=== PATIENT | female | born 1985 | race Caucasian/White ===

== ENCOUNTER 2021-12-04 16:30 | Inpatient (IN) | payer OTHER ==
[2021-12-04 16:58] VITALS: BMI 23.8
[2021-12-04] MEDS ORDERED: BENZOCAINE/MENTHOL (CHLORASEPTIC ) LOZENGE MM PRN (18:32)
[2021-12-04] MEDS ORDERED: LOPERAMIDE HCL 2 MG CAPSULE PO PRN (18:32)
[2021-12-04] MEDS ORDERED: BISMUTH SUBSALICYLATE 524 MG/30 ML PO PRN (18:32)
[2021-12-04] MEDS ORDERED: MAG HYDROX/AL HYDROX/SIMETH 30 ML UNIT-DOSE CUP PO PRN (18:32)
[2021-12-04] MEDS ORDERED: MAGNESIUM HYDROX 2400MG/30ML ORAL SUSPENSION 30 ML CUP PO PRN (18:32)
[2021-12-04] MEDS ORDERED: DICYCLOMINE HCL 10 MG CAPSULE PO PRN (18:32)
[2021-12-04] MEDS ORDERED: ACETAMINOPHEN 325 MG TABLET (FP) PO PRN (18:32)
[2021-12-04] MEDS ORDERED: MAGNESIUM CITRATE 300 ML BOTTLE PO PRN (18:32)
[2021-12-04] MEDS ORDERED: ALBUTEROL SO4 HFA INHALER IH PRN (18:39)
[2021-12-04] MEDS ORDERED: chlordiazePOXIDE HCL 25 MG CAPSULE PO PRN (21:06)
[2021-12-04] MEDS: ONDANSETRON *ODT* 4 MG TABLET SL PRN (21:49)
[2021-12-04] MEDS: MELATONIN 5 MG TABLETS PO SCH (21:51)
[2021-12-04] MEDS: THIAMINE HCL 100 MG TABLET (FP) PO SCH (21:56)
[2021-12-04] MEDS: chlordiazePOXIDE HCL 25 MG CAPSULE PO SCH (22:00)
[2021-12-04] MEDS: NICOTINE POLACRILEX 2 MG GUM BUC PRN (23:04)
[2021-12-05] MEDS: METHOCARBAMOL 500 MG TABLET PO PRN ×3 (01:12→22:24)
[2021-12-05] MEDS: chlordiazePOXIDE HCL 25 MG CAPSULE PO SCH ×4 (06:29→22:22)
[2021-12-05] MEDS: ACETAMINOPHEN 325 MG TABLET (FP) PO PRN (06:31)
[2021-12-05] MEDS: NICOTINE POLACRILEX 2 MG GUM BUC PRN ×3 (06:34→18:04)
[2021-12-05] MEDS: PRENATAL VITAMINS W/ FOLIC ACID TABLET (FP) PO SCH (10:10)
[2021-12-05] MEDS: ONDANSETRON *ODT* 4 MG TABLET SL PRN (10:13)
[2021-12-05] MEDS: NICOTINE 21 MG/24 HOURS TOPICAL PATCH TD SCH (10:52)
[2021-12-05 12:08] LABS: HEMATOCRIT 37.7 % (32.4-45.2); HEMOGLOBIN 12.6 GM/dL (10.7-15.3); MCH 31.1 pg (25.7-33.7); MCHC 33.4 g/dl (32.0-36.0); MEAN CELL VOLUME 93.1 fl (80-96); MEAN PLT VOLUME 7.2 fl (7.5-11.1); PLATELET COUNT 455 10^3/uL (134-434); RBC 4.06 M/mm3 (3.60-5.2); RDW 14.3 % (11.6-15.6); WHITE BLOOD COUNT 9.6 K/mm3 (4.0-10.0)
[2021-12-05 12:15] LABS: ALBUMIN 3.4 g/dl (3.4-5.0); BLOOD UREA NITROGEN 12.1 mg/dL (7-18); CALCIUM 8.9 mg/dL (8.5-10.1)
[2021-12-05 12:18] LABS: CREATININE 0.8 mg/dL (0.55-1.3)
[2021-12-05 12:20] LABS: BILIRUBIN,TOTAL 0.6 mg/dL (0.2-1); TOT PROT 6.7 g/dl (6.4-8.2)
[2021-12-05] MEDS: lamoTRIgine 100 MG TABLET PO SCH (12:47)
[2021-12-05] MEDS: VENLAFAXINE HCL 150 MG E.R. CAPSULE PO SCH (13:06)
[2021-12-05] MEDS: IBUPROFEN 400 MG TABLET (FP) PO PRN ×2 (14:39→22:24)
[2021-12-05] MEDS: hydrOXYzine PAMOATE 25 MG CAPSULE (FP) PO PRN ×2 (18:01→22:22)
[2021-12-05] MEDS: MELATONIN 5 MG TABLETS PO SCH (22:22)
[2021-12-05] MEDS: THIAMINE HCL 100 MG TABLET (FP) PO SCH (22:22)
[2021-12-06] MEDS: ALBUTEROL SO4 HFA INHALER IH PRN (05:48)
[2021-12-06] MEDS ORDERED: ALBUTEROL SO4 HFA INHALER IH ONE (05:48)
[2021-12-06] MEDS: chlordiazePOXIDE HCL 25 MG CAPSULE PO SCH ×4 (05:48→22:14)
[2021-12-06 08:06] LABS: SARS-CoV-2 NAA Not Detected (Not Detected)
[2021-12-06] MEDS: hydrOXYzine PAMOATE 25 MG CAPSULE (FP) PO PRN ×3 (10:31→22:14)
[2021-12-06] MEDS: PRENATAL VITAMINS W/ FOLIC ACID TABLET (FP) PO SCH (10:31)
[2021-12-06] MEDS: lamoTRIgine 100 MG TABLET PO SCH (10:32)
[2021-12-06] MEDS: METHOCARBAMOL 500 MG TABLET PO PRN ×2 (10:32→17:50)
[2021-12-06] MEDS: NICOTINE 21 MG/24 HOURS TOPICAL PATCH TD SCH (10:33)
[2021-12-06] MEDS: NICOTINE POLACRILEX 2 MG GUM BUC PRN (10:38)
[2021-12-06] MEDS: VENLAFAXINE HCL 150 MG E.R. CAPSULE PO SCH (12:33)
[2021-12-06] MEDS: LO LOESTRIN FE PO SCH (17:00)
[2021-12-06] MEDS: NICOTINE 10 MG CARTRIDGE (INHALER) IH PRN (17:51)
[2021-12-06] MEDS: MELATONIN 5 MG TABLETS PO SCH (22:13)
[2021-12-06] MEDS: THIAMINE HCL 100 MG TABLET (FP) PO SCH (22:14)
[2021-12-07] MEDS ORDERED: chlordiazePOXIDE HCL 10 MG CAPSULE PO PRN
[2021-12-07] MEDS: chlordiazePOXIDE HCL 10 MG CAPSULE PO SCH ×4 (06:34→22:27)
[2021-12-07] MEDS: PRENATAL VITAMINS W/ FOLIC ACID TABLET (FP) PO SCH (10:21)
[2021-12-07] MEDS: lamoTRIgine 100 MG TABLET PO SCH (10:21)
[2021-12-07] MEDS: VENLAFAXINE HCL 150 MG E.R. CAPSULE PO SCH (10:21)
[2021-12-07] MEDS: NICOTINE 21 MG/24 HOURS TOPICAL PATCH TD SCH (10:22)
[2021-12-07] MEDS: METHOCARBAMOL 500 MG TABLET PO PRN ×2 (10:23→17:57)
[2021-12-07] MEDS: NICOTINE 10 MG CARTRIDGE (INHALER) IH PRN ×2 (14:41→17:59)
[2021-12-07] MEDS: LO LOESTRIN FE PO SCH (14:41)
[2021-12-07] MEDS: hydrOXYzine PAMOATE 50 MG CAPSULE (FP) PO PRN ×3 (14:43→22:26)
[2021-12-07] MEDS: ALBUTEROL SO4 HFA INHALER IH PRN (18:01)
[2021-12-07] MEDS: MELATONIN 5 MG TABLETS PO SCH (22:26)
[2021-12-07] MEDS: THIAMINE HCL 100 MG TABLET (FP) PO SCH (22:26)
[2021-12-08] MEDS: chlordiazePOXIDE HCL 10 MG CAPSULE PO SCH ×2 (05:35→17:28)
[2021-12-08] MEDS: METHOCARBAMOL 500 MG TABLET PO PRN ×3 (05:36→17:28)
[2021-12-08] MEDS: VENLAFAXINE HCL 150 MG E.R. CAPSULE PO SCH (10:59)
[2021-12-08] MEDS: hydrOXYzine PAMOATE 50 MG CAPSULE (FP) PO PRN ×3 (11:00→22:26)
[2021-12-08] MEDS: PRENATAL VITAMINS W/ FOLIC ACID TABLET (FP) PO SCH (11:00)
[2021-12-08] MEDS: lamoTRIgine 100 MG TABLET PO SCH (11:00)
[2021-12-08] MEDS: NICOTINE 21 MG/24 HOURS TOPICAL PATCH TD SCH (11:02)
[2021-12-08] MEDS: LO LOESTRIN FE PO SCH (14:27)
[2021-12-08] MEDS: NICOTINE POLACRILEX 4 MG GUM BUC PRN (14:28)
[2021-12-08] MEDS: NICOTINE 10 MG CARTRIDGE (INHALER) IH PRN (20:55)
[2021-12-08] MEDS: THIAMINE HCL 100 MG TABLET (FP) PO SCH (22:25)
[2021-12-08] MEDS: ACETAMINOPHEN 325 MG TABLET (FP) PO PRN (22:26)
[2021-12-08] MEDS: MELATONIN 5 MG TABLETS PO SCH (22:27)
[2021-12-09] MEDS ORDERED: chlordiazePOXIDE HCL 10 MG CAPSULE PO ONE (05:00)
[2021-12-09] MEDS: NICOTINE POLACRILEX 4 MG GUM BUC PRN ×2 (06:06→08:45)
[2021-12-09] MEDS: NICOTINE 10 MG CARTRIDGE (INHALER) IH PRN (08:45)
[2021-12-09 08:53] VITALS: TEMP 97.3
[2021-12-09 09:38] VITALS: BP 99/65; PULSE 82
[2021-12-09] MEDS: METHOCARBAMOL 500 MG TABLET PO PRN (10:16)
[2021-12-09] MEDS: PRENATAL VITAMINS W/ FOLIC ACID TABLET (FP) PO SCH (10:16)
[2021-12-09] MEDS: VENLAFAXINE HCL 150 MG E.R. CAPSULE PO SCH (10:16)
[2021-12-09] MEDS: lamoTRIgine 100 MG TABLET PO SCH (10:17)
[2021-12-09] MEDS: NICOTINE 21 MG/24 HOURS TOPICAL PATCH TD SCH (10:18)
== END 2021-12-09 11:12 | disposition home or self-care (01) | DRG 775 ==
LOC: YASAS 16:30 → Y6N 20:52
PROVIDERS: ADMIT Allergy & Immunology; ATTEND Allergy & Immunology
PROC: HZ2ZZZZ Detoxification Services for Substance Abuse Treatment (ICD-10-PCS; principal; 2021-12-04)
DX: F10.230 Alcohol dependence with withdrawal, uncomplicated (principal); F15.10 Other stimulant abuse, uncomplicated; F17.210 Nicotine dependence, cigarettes, uncomplicated; F10.282 Alcohol dependence with alcohol-induced sleep disorder; F10.280 Alcohol dependence with alcohol-induced anxiety disorder; F19.24 Other psychoactive substance dependence with psychoactive substance-induced mood disorder; F31.81 Bipolar II disorder; F41.9 Anxiety disorder, unspecified; J45.909 Unspecified asthma, uncomplicated
CPT/HCPCS: 36415; 80053; 81025; 82962; 85027; 86780; 93005; 93010; C9803-CS; Q0162; U0003; U0005